=== PATIENT | female | born 1980 | race Caucasian/White ===

== ENCOUNTER 2017-03-18 13:27 | Emergency (ER) | payer SELFPAY ==
--- NOTE | 2017-03-18 13:33 | ED Physician Documentation ---
General Adult - HISTORIAN Historian: patient - HPI Chief Complaint: General Adult Timing: still present Further Comments: yes (Has been using drugs for 3 years. Meth, smoking 1 bowel a day, Heroin IV2-3 hits a day. Has been doing drugs for 3 years. Has been trying to withdrawal herself. Has started to have a alot of muscle, cramps, runny nose headache, nausea, goosebumps, and myalgias; no vomiting or diarrhea. Patient denies . Has detoxed in the past several times and symptoms were not this bad. Patient was in process of being arrested and requested medical evaluation.) - ROS CONST: fever (101.3), chills - PAST HX Past History: none Allergies/Adverse Reactions: Allergies Allergy/AdvReac Type Severity Reaction Status Date / Time acetaminophen [From Tylenol] Allergy Intermediate Rash Verified 03/18/17 14:19 Home Medications: Ambulatory Orders Medication Instructions Recorded NK [NK] 03/18/17 - SOCIAL HX Smoking History: greater than 1 pack/day Alcohol Use: none Drug Use: heroin, methamphetamines - FAMILY HX Family History: No - REVIEWED ASSESSMENTS Nursing Assessment Reviewed: Yes Vitals Reviewed: Yes Progress - Progress Progress: 14:54 resting quietly General Adult Physical Exam - PHYSICAL EXAM GENERAL APPEARANCE: moderate distress EENT: no signs of dehydration NECK: normal inspection RESPIRATORY: no resp distress, chest non-tender, breath sounds normal. No: wheezes, rales, rhonchi CVS: reg rate & rhythm, heart sounds normal, equal pulses ABDOMEN: soft, no organomegaly, normal bowel sounds, no abdominal bruit NEURO: oriented X3, CN's nml as tested, motor nml, sensation nml, mood/affect nml, cognition normal Discharge Clincal Impression: Methamphetamine addiction Opiate addiction Qualifiers: Substance use status: in withdrawal Qualified Code(s): F11.23 - Opioid dependence with withdrawal Referrals: Primary Doctor,No [Primary Care Provider] - 2 Days Additional Instructions: Patient to be monitored for further withdrawal symptoms, problems. Have [facility] provider consider further medical treatment for withdrawal symptoms. Patient is fit for confinement. Home Medications: Ambulatory Orders NK [NK] 03/18/17 Condition: Stable Disposition: 01 HOME, SELF-CARE Decision to Admit: NO Date of Decison to Admit: 03/18/17 Decision Time: 15:06
[2017-03-18] MEDS ORDERED: 0.9 % SODIUM CHLORIDE 1,000 ML IV ONE (14:14)
[2017-03-18 14:15] LABS: BASOPHILS % 0.7 (0.0-1.5); EOSINOPHILS % 0.8 % (0.0-6.8); MEAN CORPUSCULAR HEMOGLOBIN 28.6 pg (28.0-34.0); MEAN CORPUSCULAR VOLUME 86.3 fl (80.0-100.0); MONOCYTES % 2.3 % (0.0-11.0); NEUTROPHILS # 4.8 # k/uL (1.4-7.7)
[2017-03-18] MEDS: 0.9 % SODIUM CHLORIDE 1,000 ML IV SCH ×2 (14:22→16:12)
[2017-03-18 14:50] LABS: APPEARANCE,URINE Cloudy (CLEAR); COLOR,URINE Yellow (YELLOW); OCCULT BLOOD,URINE Trace-lysed (NEGATIVE); PH URINE 8.5 (5.0 - 8.0); UROBILINOGEN URINE 0.2 Eu (0.2-1.0)
[2017-03-18 14:52] LABS: AMPHETAMINE NEGATIVE ng/mL (<1000); BARBITURATES NEGATIVE ng/mL (<300); CANNABINOIDS NEGATIVE ng/mL (< 50); COCAINE NEGATIVE ng/mL (<150); METHAMPHETAMINE NON NEGATIVE ng/mL (<1000); METHYLENEDIOXYMETHAMPHETAMINE NEGATIVE ng/mL (<500); MORPHINE NON NEGATIVE ng/mL (<300)
[2017-03-18 14:58] LABS: eGFR (African) > 60; eGFR (Non-African) > 60
[2017-03-18] MEDS ORDERED: CloNIDine HCL 0.1 MG TABLET PO ONE (15:05)
[2017-03-18] MEDS ORDERED: SULFAMETHOXAZOLE/TRIMETHOPRIM 1 EACH TABLET PO ONE (15:19)
[2017-03-18 16:05] VITALS: BP 137/85
== END 2017-03-18 15:35 | disposition home or self-care (01) ==
LOC: ED 13:27
DX: N39.0 Urinary tract infection, site not specified (principal); F15.20 Other stimulant dependence, uncomplicated; F11.23 Opioid dependence with withdrawal
CPT/HCPCS: 36415; 80053; 80377; 81002; 85025; 87086; 93005; A9270; J7030; 87186; 96360; 99283; G0481; S1016

== ENCOUNTER 2017-05-08 19:47 | Emergency (ER) | payer SELFPAY ==
[2017-05-08 20:25] LABS: BASOPHILS % 0.7 (0.0-1.5); MEAN CORPUSCULAR HEMOGLOBIN 29.8 pg (28.0-34.0); MEAN CORPUSCULAR VOLUME 90.4 fl (80.0-100.0)
[2017-05-08 20:26] LABS: MONOCYTES % 8.5 % (0.0-11.0)
[2017-05-08 20:27] LABS: EOSINOPHILS % 0.3 % (0.0-6.8)
[2017-05-08 20:28] LABS: NEUTROPHILS # 4.4 # k/uL (1.4-7.7)
[2017-05-08 20:32] LABS: eGFR (African) > 60; eGFR (Non-African) > 60
[2017-05-08] MEDS: IBUPROFEN 200 MG TABLET PO ONE (21:00)
--- NOTE | 2017-05-08 21:03 | ED Physician Documentation ---
Female Urogenital Problems - HPI Stated Complaint: RLQ PAIN, HEAVY BLEEDING Chief Complaint: Female Urogenital Problems Onset: other (yesterday) Location of Pain: abdominal pain (RLQ) Further Comments: yes (26 year old female patient brought in from snf for evaluation of vaginal bleeding. 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 G4, P1, AB 3 Patient reports her last menstrual period was 4 months ago, states she has "always had a period every 4 months". Denies previous heavy menstration or discomfort. Requesting pain medication for cramping.) - Vaginal Bleeding Description of Menstrual: irregular period(s) Contraceptive: none - Associated Symptoms Urinary Symptoms: none - ROS CONST: none GI/: other (abdominal cramping, "heavy bleeding"). denies: nausea, vomiting, diarrhea, black stools, bloody stools CVS/RESP: none EYES/ENT: none NEURO/PSYCH: none MS/SKIN/LYMPH: none - PAST HX Past History: none Other History: hypertension, other (bipolar, HTN) Allergies/Adverse Reactions: Allergies Allergy/AdvReac Type Severity Reaction Status Date / Time acetaminophen [From Tylenol] Allergy Intermediate Rash Verified 05/08/17 20:04 Home Medications: Ambulatory Orders Medication Instructions Recorded NK [NK] 05/08/17 - SOCIAL HX Smoking History: cigarettes - FAMILY HX Family History: denies: none - VITAL SIGNS Vital Signs: Vital Signs Temp Pulse Resp BP Pulse Ox 98.4 F 92 H 16 112/86 100 05/08/17 19:50 05/08/17 19:50 05/08/17 19:50 05/08/17 19:50 05/08/17 19:50 - REVIEWED ASSESSMENTS Nursing Assessment Reviewed: Yes Vitals Reviewed: Yes Progress - Progress Progress: Reviewed lab results with patient. Patient c/o cramping, c/o bleeding increasing. Will progress with speculum exam. ED Results Lab/Radiology - Lab Results Lab Results: Lab Results 05/08/17 05/08/17 20:10 20:10 WBC 7.69 K/ul K/ul (4.00-12.00) RBC 4.40 M/ul M/ul (3.90-5.20) Hgb 13.1 g/dL g/dL (12.0-16.0) Hct 39.7 % % (34.5-46.5) MCV 90.4 fl fl (80.0-100.0) MCH 29.8 pg pg (28.0-34.0) MCHC 33.0 g/dL g/dL (30.0-36.0) RDW 14.5 % H % (11.3-14.3) Plt Count 226 K/mm3 K/mm3 (130-400) Neut % (Auto) 57.1 % % (39.0-79.0) Lymph % (Auto) 31.0 % % (16.0-50.0) Gilchrist % (Auto) 8.5 % % (0.0-11.0) Eos % (Auto) 0.3 % % (0.0-6.8) Baso % (Auto) 0.7 (0.0-1.5) Neut # (Auto) 4.4 # k/uL # k/uL (1.4-7.7) Lymph # (Auto) 2.4 # k/uL # k/uL (0.6-4.0) Gilchrist # (Auto) 0.7 # k/uL # k/uL (0.0-0.9) Eos # (Auto) 0.0 # k/uL # k/uL (0.0-0.6) Baso # (Auto) 0.0 # k/uL # k/uL (0.0-0.5) Reactive Lymphs % Pending Reactive Lymphs # Pending Sodium 140 mmol/L mmol/L (137-145) Potassium 4.5 mmol/L mmol/L (3.5-5.1) Chloride 103 mmol/L mmol/L (98-107) Carbon Dioxide 28 mmol/L mmol/L (22-30) BUN 14 mg/dL mg/dL (7-17) Creatinine 0.70 mg/dL mg/dL (0.52-1.04) Estimated Creat Clear 162 Est GFR ( Amer) > 60 (60 - ) Est GFR (Non-Af Amer) > 60 (60 - ) Glucose 85 mg/dL mg/dL (74-106) Calcium 9.0 mg/dL mg/dL (8.4-10.2) Total Bilirubin 0.1 mg/dL L mg/dL (0.2-1.3) AST 17 U/L U/L (15-46) ALT 22 U/L U/L (13-69) Alkaline Phosphatase 78 U/L U/L (38-126) Total Protein 7.4 g/dL g/dL (6.3-8.2) Albumin 4.2 g/dL g/dL (3.5-5.0) - Orders Orders: ED Orders Category Date Time Status Place IV Lock 1T Care 05/08/17 19:50 Active CBC/PLATELET/DIFF Stat Lab 05/08/17 20:10 Results CMP Stat Lab 05/08/17 20:10 Completed UA W/MICRO IF INDICATED Stat Lab 05/08/17 19:50 Ordered URINE HCG Stat Lab 05/08/17 20:10 Ordered Ibuprofen [Advil] Med 05/08/17 20:44 Discontinued 600 mg PO NOW ONE Female Urogenital Problems - EXAM General Appearance: mild distress EENT: eye inspection normal, FARZAD Respiratory: no resp. distress, breath sounds nml CVS: reg rate & rhythm, heart sounds normal, equal pulses, no murmur, no gallop , PMI nml, no JVD, no friction rub, 24 Abdomen: no organomegaly, no distention, nml bowel sounds, tenderness (RLQ) Pelvic: external exam nml, speculum exam nml, active bleeding (dark red, menstrual bleeding), moderate, blood in vaginal vault (menstrual cycle; dark red , no clots). No: blood clots in vault, cerv.motion tenderness, cervical dilation, enlarged uterus Back: non-tender, painless ROM Skin: color nml, no rash, warm,dry Extremities: non-tender, normal range of motion, no evidence of injury, no edema , J, RN PSYCH Neuro: oriented X3, CN's nml as tested, motor nml, sensation nml, mood/affect nml Discharge Clincal Impression: Menorrhagia Qualifiers: Menorrahagia type: with irregular cycle Qualified Code(s): N92.1 - Excessive and frequent menstruation with irregular cycle Referrals: Primary Doctor,No [Primary Care Provider] - 2 Days Additional Instructions: Ibuprofen 600mg every 6 hours as needed for pain Recommend - [employer]PERATOR evaluation if symptoms become worse. Consider starting daily control Condition: Stable Disposition: 01 HOME, SELF-CARE Decision to Admit: NO Decision Time: 21:00
[2017-05-08 21:38] VITALS: BP 120/80
== END 2017-05-08 21:10 | disposition home or self-care (01) ==
LOC: ED 19:47
DX: N92.1 Excessive and frequent menstruation with irregular cycle (principal)
CPT/HCPCS: 80053; 85025; 99283; S1016

== ENCOUNTER 2017-12-08 15:20 | Emergency (ER) | payer SELFPAY ==
--- NOTE | 2017-12-08 15:41 | ED Physician Documentation ---
General Adult - HPI Stated Complaint: vag discomfort Chief Complaint: General Adult Additional Information: Tampon/pad in vagina for a week and can't get it out. HX UTI's. Has been having back discomfort and can't tell if it's back pain or UTI. Prisoner. - ROS CONST: no problems - PAST HX Past History: other (above) Allergies/Adverse Reactions: Allergies Allergy/AdvReac Type Severity Reaction Status Date / Time acetaminophen [From Tylenol] Allergy Intermediate Rash Verified 12/08/17 15:39 Home Medications: Ambulatory Orders Medication Instructions Recorded NK [NK] 05/08/17 - SOCIAL HX Smoking History: cigarettes - FAMILY HX Family History: No - VITAL SIGNS Vital Signs: Vital Signs Temp Pulse Resp BP Pulse Ox 120/80 05/08/17 21:10 - REVIEWED ASSESSMENTS Nursing Assessment Reviewed: Yes Vitals Reviewed: Yes ED Results Lab/Radiology - Orders Orders: ED Orders Category Date Time Status UA [URINALYSIS] Routine Lab 12/08/17 Ordered General Adult Physical Exam - PHYSICAL EXAM GENERAL APPEARANCE: mild distress EENT: eye inspection normal, ENT inspection normal NECK: normal inspection RESPIRATORY: no resp distress ABDOMEN: soft, non-tender, other (Pelvic exam normal except: tampon sized fibrous material removed, malodorous. No adnexal or cervical motion tenderness. Cervix closed. ) BACK: normal inspection, no CVA tenderness, other (no vertebral tenderness) SKIN: warm/dry, other (facial lesions: sores/acne) EXTREMITIES: normal range of motion (gait and stance), no evidence of injury NEURO: CN's nml as tested, motor nml, sensation nml Discharge Clincal Impression: Vaginal foreign body Qualifiers: Encounter type: initial encounter Qualified Code(s): T19.2XXA - Foreign body in vulva and vagina, initial encounter Referrals: Primary Doctor,No [Primary Care Provider] - 2 Days Condition: Good Disposition: 01 HOME, SELF-CARE Decision to Admit: NO Decision Time: 15:45
[2017-12-08 15:46] VITALS: BP 95/76
[2017-12-08 17:29] LABS: APPEARANCE,URINE CLEAR (CLEAR); COLOR,URINE YELLOW (YELLOW); OCCULT BLOOD,URINE NEGATIVE (NEGATIVE)
[2017-12-08 17:30] LABS: UROBILINOGEN URINE 0.2 Eu (0.2-1.0)
== END 2017-12-08 15:49 | disposition home or self-care (01) ==
LOC: ED 15:20
DX: T19.2XXA Foreign body in vulva and vagina, initial encounter (principal); Y99.9 Unspecified external cause status
CPT/HCPCS: 81002; 99284